=== PATIENT | female | born 1965 | race Caucasian/White ===

== ENCOUNTER 2016-08-21 17:58 | Emergency (ER) | payer BC | END 2016-08-21 20:13 | disposition home or self-care (01) | LOC: ER 17:58 | DX: R07.89 Other chest pain (principal); J84.9 Interstitial pulmonary disease, unspecified; I10 Essential (primary) hypertension; J44.9 Chronic obstructive pulmonary disease, unspecified; F17.210 Nicotine dependence, cigarettes, uncomplicated; Z88.5 Allergy status to narcotic agent; Z88.8 Allergy status to other drugs, medicaments and biological substances; Z79.899 Other long term (current) drug therapy; Z79.82 Long term (current) use of aspirin ==